=== PATIENT | male | born 1960 | race Caucasian/White ===

== ENCOUNTER 2020-11-20 15:55 | Outpatient (CLI) | payer MEDICARE, MEDICAID, SELFPAY ==
[2020-11-24 19:42] LABS: PSA, Free 0.02 ng/mL; PSA, Total 0.1 ng/mL (<=4.0)
== END 2020-11-20 15:56 | disposition home or self-care (01) ==
LOC: ANHLAB 15:56
PROVIDERS: PCP Internal Medicine; Visit Provider Radiology Radiation Oncology
DX: C61 Malignant neoplasm of prostate (principal)
CPT/HCPCS: 36415; 84153; 84154

== ENCOUNTER 2021-02-26 20:27 | Emergency (ER) | payer MEDICARE, MEDICAID, SELFPAY ==
[2021-02-26 20:30] VITALS: BP 173/90; PULSE 53; RESP 16; TEMP 36.4; O2SAT 100
[2021-02-26 20:34] LABS: Glucose Point of Care 84 (65-105)
--- NOTE | 2021-02-26 20:38 | ECG_ITS ---
Measurements Intervals Fox Rate: 49 P: 55 AR: 176 QRS: 49 QRSD: 106 T: 52 QT: 477 QTc: 434 Interpretive Statements SINUS BRADYCARDIA CANNOT RULE OUT SEPTAL INFARCT, AGE INDETERMINATE BASELINE ARTIFACT- I, II, III, AVR, AVL, AVF, V1, V4-V5 ABNORMAL ECG Electronically Signed On 02-27-2021 7:39:32 CDT by Fabio Zamora D.O.
--- NOTE | 2021-02-26 20:38 | ED.AMS ---
HPI - Altered Mental Status General Chief Complaint: Altered Mental Status Stated Complaint: unresponsive, bs 29 Source: patient and EMS Mode of arrival: EMS Limitations: no limitations History of Present Illness HPI narrative: This is a 60 year old male with history DM, hypertension, hyperlipidemia who presents via EMS for evaluation of unresponsiveness. EMS states patient was unresponsive and he was found to have BS of 29. EMS started D10 iv infusion and he is now awake. Patient states he was at a friend's house when this occurred. He admits to drinking 6 pack of beer today. He has only eaten a banana and V8 today. He states he gave himself 10 units of U-100 insulin this morning, and he has not checked his BS today. He thinks his issue is because he has not eaten much today. He denies chest pain, headache, nausea, vomiting, cough, diarrhea or fever. Related Data Home Medications Medication Instructions Recorded Confirmed carvedilol 12.5 mg tablet 12.5 mg PO Q12H 10/08/19 02/01/21 iinrnswf-dhm-rdrqd acid 0.4 1 tablet PO DAILY 10/08/19 02/01/21 mg-lycopene 300 mcg-lutein 250 mcg tablet furosemide 40 mg tablet 40 mg PO QAM 10/28/19 02/01/21 spironolactone 100 mg tablet 100 mg PO DAILY 10/28/19 02/01/21 hydrocodone 5 mg-acetaminophen 325 1 tablet PO Q6H PRN 06/04/20 02/01/21 mg tablet multivitamin 1 tablet PO DAILY 11/30/20 02/01/21 Allergies Allergy/AdvReac Type Severity Reaction Status Date / Time canagliflozin Allergy Intermediate rash Verified 10/26/20 10:47 Review of Systems Review of Systems: All systems reviewed & are unremarkable except as noted in HPI and below PMFSH Past Medical History Medical History Chronic pancreatitis Diabetes mellitus Esophageal varices Gynecomastia, male History of rectal polyps Hyperlipidemia due to dietary fat intake Lung nodule < 6cm on CT Not visible on PET/CT 06/09/2020 Prostate cancer Surgical History Surgical History History of hernia surgery History of prostatectomy Family History Family History (Updated 06/28/17 @ 09:28 by DOCTOR UNKNOWN) Mother Family history of Alzheimer's disease Father Patient's father is Cerebrovascular accident Family history of kidney disease Sibling Hypertension Other Diabetes mellitus Family history of allergic disorder Social History Social History (Updated 06/04/20 @ 14:09 by Jaqueline Meeks, [facility]) Smoking packs per day: 0.5 Smoking cigarettes per day: 10.0 Years smoked: 20 Smoking pack-years: 10.00 Smoking status: Former smoker Tobacco type: cigarettes Smoking end date: 10/23/99 Additional smoking assessment comments: smoked less than a pack per week Alcohol intake: current Spiritual care concerns: No Exam Const: General: no acute distress and alert Orientation/consciousness: patient oriented x3 HENMT: Head: normocephalic and atraumatic Face and sinus: face symmetric Throat: posterior oropharynx normal, tonsils normal and uvula midline Eyes: Pupils: Equal, round and reactive pupils present EOM: EOMs intact bilaterally Neck: Neck: normal visual inspection Chest: Chest palpation & inspection: normal inspection of the chest Resp: Effort & Inspection: normal respiratory effort and no retractions Auscultation: clear to auscultation bilaterally Cardio: Rate: regular rate Rhythm: regular rhythm Heart sounds: no murmurs GI: GI Palp: Yes Soft to palpation, Yes Tenderness to palpation present (GI) (RUQ) and No Guarding due to palpation present (GI) Auscultation: normal bowel sounds Skin: General skin exam: normal color Rashes: no rashes Neuro: General: patient oriented x3, moves all extremities and CN's II-XI intact bilaterally Psych: Mental Status: mental status grossly normal Affect: normal affect Course Reevaluation(s) Reevaluation #1
[2021-02-26 21:05] LABS: Basophils Percent Auto 0.3 % (0.2-1.2); Eosinophils Absolute Auto 0.1 K/mm3 (0-0.3); Eosinophils Percent Auto 2.2 % (0-4.4); Hematocrit 38.1 % (42.0-52.0); Immature Granulocyte Absolute 0.05 K/mm3 (0.00-0.031); Immature Granulocyte Percent A 0.8 % (0-0.5); Immature Platelet Fraction Pct 9.1 % (0.9-11.2); Lymphocytes Absolute Auto 0.44 K/mm3 (0.9-3.2); Lymphocytes Percent Auto 7.4 % (18.3-44.2); Mean Corpuscular HGB Conc 34.1 g/dl (32-36); Mean Corpuscular Hemoglobin 31.2 pg (26-34); Mean Corpuscular Volume 91.4 fl (80-100); Mean Platelet Volume 10.7 fl (7.4-10.4); Monocytes Absolute Auto 0.5 K/mm3 (0.1-0.6); Monocytes Percent Auto 9.1 % (2.6-8.5); Neutrophils Absolute Auto 4.7 K/mm3 (1.3-6.7); Neutrophils Percent Auto 80.2 % (45.5-73.1); Platelet Count Result 112 k/mm3 (150-375); Red Blood Count 4.17 M/mm3 (4.6-6.20); Red Cell Distribution Width 13.6 % (11.5-14.5); White Blood Count 5.9 K/mm3 (4.5-10.0)
[2021-02-26 21:12] LABS: Potassium 3.9 mmol/L (3.4-5.0)
[2021-02-26 21:23] LABS: Alanine Aminotransferase 52 U/L (4-50); Albumin Level 4.5 g/dL (3.5-5.1); Alkaline Phosphatase 112 U/L (38-126); Anion Gap 9 mmol/L (8-16); Aspartate Amino Transferase 64 U/L (17-59); Bilirubin,Total 1.1 mg/dL (0.2-1.3); Blood Urea Nitrogen 9 mg/dL (9-20); Calcium 9.3 mg/dL (8.4-10.2); Carbon Dioxide 22 mmol/L (22-30); Chloride 96 mmol/L (98-107); Estimated CRCL calculation 87 ml/min; Estimated Glomerular Filt Rate > 60; Glucose 63 mg/dL (75-110); Sodium 127 mmol/L (137-145)
[2021-02-26 21:33] LABS: Glucose Point of Care 117 (65-105)
[2021-02-26 21:44] LABS: Ethanol 69 mg/dL (<10)
[2021-02-26] MEDS: SODIUM CHLORIDE 0.9% IV 1,000 ML 999 ML IV CONT (21:52)
[2021-02-26 21:53] VITALS: BP 98/62; PULSE 60; RESP 18; O2SAT 99
[2021-02-26 21:55] LABS: Glucose Point of Care 119 (65-105)
[2021-02-26 23:01] LABS: Glucose Point of Care 117 (65-105)
[2021-02-26 23:16] LABS: Magnesium 1.6 mg/dL (1.6-2.3)
[2021-02-26 23:42] LABS: Add Urine Microscopic? YES; Appearance Urine Clear (Clear); Bilirubin Urine Negative (Negative); Blood Urine Negative (Negative); Color Urine Yellow (Yellow); Glucose Urine UA 1+ mg/dL (Negative); Ketones Urine Negative (Negative); Leukocyte Esterase Ur Negative LEU/UL (Negative); Nitrate Urine Negative (Negative); Protein Urine Negative (Negative); RBC Urine 0-2 /hpf (0-2); Specific Grav Ur 1.006 (1.001-1.035); Squamous Epithelial Cell Urine Rare /hpf (Few); Urobilinogen Urine Negative mg/dL (<2.0); WBC Urine 0-3 /hpf
[2021-02-26 23:52] VITALS: BP 154/92; PULSE 61; RESP 20; O2SAT 100
[2021-02-27 00:10] VITALS: BP 135/81; PULSE 69; RESP 16; O2SAT 100
== END 2021-02-27 00:23 | disposition home or self-care (01) ==
PROVIDERS: Emergency Provider General Practice; PCP Internal Medicine
DX: E11.649 Type 2 diabetes mellitus with hypoglycemia without coma (principal); E87.1 Hypo-osmolality and hyponatremia; E78.5 Hyperlipidemia, unspecified; I10 Essential (primary) hypertension; K86.1 Other chronic pancreatitis; Z87.19 Personal history of other diseases of the digestive system; Z85.46 Personal history of malignant neoplasm of prostate; Z87.891 Personal history of nicotine dependence; Z79.4 Long term (current) use of insulin; R94.31 Abnormal electrocardiogram [ECG] [EKG]; R00.1 Bradycardia, unspecified; Z79.899 Other long term (current) drug therapy
CPT/HCPCS: 36415; 80053; 80307; 81001; 82948; 83735; 85025; 85055; 93005; 96360; 99284; J7030

== ENCOUNTER 2021-09-22 08:09 | Outpatient (CLI) | payer MEDICARE, MEDICAID, SELFPAY ==
--- NOTE | ~2021-09-22 | NM_ITS ---
EXAMINATION: NM jluis stress w perfusion DATE: 09/22/2021 11:12 [facility] INDICATION: Preprocedural cardiovascular examination. TECHNIQUE: Rest images were obtained following intravenous administration of 9.4 mCi Tc99m tetrofosmi n (Myoview). The patient was infused intravenously with Lexiscan (regadenoson). Then, 29.5 mCi Tc99m tetrofosmin (Myoview) was administered intravenously, and stress images were obtained. Data was recon structed into short axis and horizontal and vertical long axis SPECT images. Gated SPECT images were also obtained. COMPARISON: None. FINDINGS: There is no definite reversible or fixed perfusion abnormality to suggest ischemia or infar ction. There is no segmental wall motion abnormality. Left ventricular ejection fraction measures 7 4%. IMPRESSION: 1. No definite ischemia or infarct. 2. Normal left ventricular ejection fraction measuring 74%. Reviewed, dictated and finalized at location B. [facility]
--- NOTE | 2021-09-22 08:28 | EST_ITS ---
Patient Info Name: Lloyd Mckeon Age: 61 years : 1960 Gender: Male Ht: 72 in Wt: 154 lbs BSA: 1.88 m2 HR: 96 bpm BP: 179 / 88 mmHg Heart Rhythm: Sinus Rhythm Exam Date: 09/22/2021 8:45 AM Exam Location: [facility] Stress Patient Status: Outpatient Admit Date: 09/22/2021 Staff Ordering Physician: Rafael Castaneda DO Attending Provider: Tyler Smith MD Exercise Technologist: Aniya Bowman CT Exercise Physician: Fabio Zamora DO Exam Type: CA stress jluis w NM Study Info A regadenoson stress test was performed. Summary 1. 1. Negative lexiscan stress test for ischemic ST changes by ECG criteria. 2. 2. Baseline hypertension. 3. 3. Nuclear scan to follow and will be reported separately. Please correlate with it. 4. 4. Patient informed of the above results. Protocol: Lexiscan Stress ECG Details Stage: REST Duration (min): 44 min : 35 sec HR (bpm): 97 SBP (mmHg): --- DBP (mmHg): --- Stage: REST Duration (min): 50 min : 14 sec HR (bpm): 85 SBP (mmHg): 185 DBP (mmHg): 120 Stage: STAGE 1 Duration (min): 1 min : 0 sec HR (bpm): 95 SBP (mmHg): 179 DBP (mmHg): 88 Stage: RECOVERY Duration (min): 1 min : 0 sec HR (bpm): 98 SBP (mmHg): 179 DBP (mmHg): 88 Stage: RECOVERY Duration (min): 2 min : 0 sec HR (bpm): 94 SBP (mmHg): 179 DBP (mmHg): 88 Stage: RECOVERY Duration (min): 2 min : 33 sec HR (bpm): 92 SBP (mmHg): 176 DBP (mmHg): 104 Rest HR: 85 bpm Peak HR: 105 bpm Rest Sys BP: 185 mmHg Peak Sys BP: 179 mmHg Max Pred HR: 159 bpm % Max Pred HR: 66 % Target HR: 135 bpm Max RPP: 18,795 bpm*mmHg Termination Reason: Completed protocol Cardiac Symptoms: None Total Time: 1 min : 0 sec Rest Saleem BP: 120 mmHg Peak Saleem BP: 88 mmHg Total Dose: 0.4 mg Resting ECG Sinus rhythm, cannot r/o septal infarct, age indeterminate. Stress ECG No ST changes. Arrhythmias None. Report Signatures
[2021-09-22 09:44] LABS: Basophils Percent Auto 0.5 % (0.2-1.2); Eosinophils Absolute Auto 0.1 K/mm3 (0-0.3); Eosinophils Percent Auto 2.6 % (0-4.4); Hemoglobin 13.3 g/dL (14.0-18.0); Immature Granulocyte Absolute 0.01 K/mm3 (0.00-0.031); Immature Granulocyte Percent A 0.2 % (0-0.5); Immature Platelet Fraction Pct 9.1 % (0.9-11.2); Lymphocytes Absolute Auto 0.29 K/mm3 (0.9-3.2); Lymphocytes Percent Auto 6.9 % (18.3-44.2); Mean Corpuscular HGB Conc 35.9 g/dl (32-36); Mean Corpuscular Hemoglobin 33.4 pg (26-34); Mean Platelet Volume 11.3 fl (7.4-10.4); Monocytes Absolute Auto 0.5 K/mm3 (0.1-0.6); Monocytes Percent Auto 10.6 % (2.6-8.5); Neutrophils Absolute Auto 3.4 K/mm3 (1.3-6.7); Neutrophils Percent Auto 79.2 % (45.5-73.1); Platelet Count Result 90 k/mm3 (150-375); Red Blood Count 3.98 M/mm3 (4.6-6.20); Red Cell Distribution Width 13.7 % (11.5-14.5); White Blood Count 4.2 K/mm3 (4.5-10.0)
[2021-09-22 09:55] LABS: Anion Gap 9 mmol/L (8-16); Blood Urea Nitrogen 13 mg/dL (9-20); Calcium 9.7 mg/dL (8.4-10.2); Carbon Dioxide 27 mmol/L (22-30); Chloride 97 mmol/L (98-107); Estimated Glomerular Filt Rate > 60; Glucose 261 mg/dL (65-110); Potassium 4.3 mmol/L (3.4-5.0); Sodium 133 mmol/L (137-145)
== END 2021-09-22 08:10 | disposition home or self-care (01) ==
PROVIDERS: PCP Internal Medicine
DX: Z01.818 Encounter for other preprocedural examination (principal); Z01.810 Encounter for preprocedural cardiovascular examination; E11.9 Type 2 diabetes mellitus without complications; Z51.81 Encounter for therapeutic drug level monitoring; Z79.899 Other long term (current) drug therapy
CPT/HCPCS: 36415; 78452; 80048; 85025; 85055; 93017; A9502; J2785

== ENCOUNTER 2022-08-08 14:05 | Emergency (ER) | payer MEDICARE, MEDICAID, SELFPAY ==
--- NOTE | ~2022-08-08 | CT_ITS ---
EXAMINATION: CT abdomen pelvis w con DATE: 08/08/2022 18:16 INDICATION: Abdominal pain, ascites TECHNIQUE: Computed tomography (CT) of the abdomen and pelvis was performed with 100 mL Omnipaque-350 intravenous contrast. Automated exposure control and iterative reconstruction technique were employe d. The dose-length product was 521.62 mGy-cm. COMPARISON: 05/27/2019. FINDINGS: Lower thorax: Bibasilar scarring. Coronary artery calcification. Liver: Small left lobe. Cavernous transformation. Portal vein occlusion. Biliary/Gallbladder: Gallbladder is absent. No bile duct dilation. Pancreas: Multiple calcifications as can be seen with chronic pancreatitis. Spleen: Normal. Adrenals:No mass. Kidneys: No mass, stone, or hydronephrosis. GI tract: No small or large bowel dilation. Normal appendix. Mesentery/Peritoneum: Moderate volume ascites. Upper abdominal varices. Retroperitoneum: No mass. Atherosclerotic abdominal aortic and/or arterial calcifications. Pelvis: Pelvic organs are within normal limits. Soft Tissues: Body wall edema. Bones: No acute osseous finding. Uncomplicated posterior lumbar fusion hardware. 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 Moderate ascites. Reviewed, dictated and finalized at location K.
[2022-08-08 14:08] VITALS: BP 118/56; PULSE 88; RESP 18; TEMP 36.2; O2SAT 100
[2022-08-08 14:26] LABS: Basophils Percent Auto 0.3 % (0.2-1.2); Eosinophils Absolute Auto 0.1 K/mm3 (0-0.3); Eosinophils Percent Auto 1.2 % (0-4.4); Hematocrit 26.2 % (42.0-52.0); Hemoglobin 8.7 g/dL (14.0-18.0); Immature Granulocyte Absolute 0.02 K/mm3 (0.00-0.031); Immature Granulocyte Percent A 0.3 % (0-0.5); Lymphocytes Absolute Auto 0.24 K/mm3 (0.9-3.2); Lymphocytes Percent Auto 4.1 % (18.3-44.2); Mean Corpuscular HGB Conc 33.2 g/dl (32-36); Mean Corpuscular Hemoglobin 30.3 pg (26-34); Mean Corpuscular Volume 91.3 fl (80-100); Mean Platelet Volume 10.7 fl (7.4-10.4); Monocytes Absolute Auto 0.6 K/mm3 (0.1-0.6); Monocytes Percent Auto 9.8 % (2.6-8.5); Neutrophils Percent Auto 84.3 % (45.5-73.1); Platelet Count Result 184 k/mm3 (150-375); Red Blood Count 2.87 M/mm3 (4.6-6.20); Red Cell Distribution Width 14.5 % (11.5-14.5); White Blood Count 5.9 K/mm3 (4.5-10.0)
[2022-08-08 14:36] LABS: Alanine Aminotransferase 35 U/L (6-50); Albumin Level 2.7 g/dL (3.5-5.1); Alkaline Phosphatase 152 U/L (38-126); Ammonia < 9 umol/L (9-30); Anion Gap 8 mmol/L (8-16); Aspartate Amino Transferase 34 U/L (17-59); Bilirubin,Total 0.6 mg/dL (0.2-1.3); Blood Urea Nitrogen 9 mg/dL (9-20); Calcium 7.9 mg/dL (8.4-10.2); Carbon Dioxide 26 mmol/L (22-30); Chloride 95 mmol/L (98-107); Estimated CRCL calculation 71 ml/min; Estimated Glomerular Filt Rate > 60; Glucose 299 mg/dL (65-110); Lipase 34 U/L (23-300); Potassium 4.2 mmol/L (3.4-5.0); Sodium 129 mmol/L (137-145)
--- NOTE | 2022-08-08 16:11 | ED.ABDPAIN ---
HPI - Abdominal Pain General Chief Complaint: Abdominal Pain Stated Complaint: asites Time Seen by Provider: 08/08/22 16:10 Source: patient and RN notes reviewed Mode of arrival: ambulatory Limitations: no limitations History of Present Illness HPI narrative: Patient is 62 years old white male came to the emergency room by private car from home complaining of ascites started 3 days ago. Patient was discharged from [facility] 4 days ago after 1 week hospitalization for GI bleed and ascites. Patient was referred to brand sales manager at [facility] and is scheduled to see him in 2 days. Patient unable to wait until appointment. Patient report that his abdominal pain is out of 10 and would like pain medication. He denies any fever, chills, nausea, vomiting, diarrhea, constipation, vomiting blood or passing blood per rectum Related Data Home Medications Medication Instructions Recorded Confirmed gnekdbmfmqtj-ywajldqj-ryrgkh tablet 1 tablet PO DAILY 04/01/22 07/11/22 atorvastatin 20 mg tablet mg 08/08/22 carvedilol 12.5 mg tablet mg 08/08/22 esomeprazole magnesium 20 mg mg 08/08/22 capsule,delayed release furosemide 40 mg tablet mg 08/08/22 gabapentin 600 mg tablet mg 08/08/22 insulin aspart U-100 100 unit/mL 08/08/22 subcutaneous solution (Novolog U-100 Insulin aspart) insulin degludec 100 unit/mL (3 unit subcut 08/08/22 mL) subcutaneous pen (Tresiba FlexTouch U-100 insulin) insulin regular human (Afrezza) unit inhalation 08/08/22 spironolactone 100 mg tablet mg 08/08/22 Allergies Allergy/AdvReac Type Severity Reaction Status Date / Time canagliflozin Allergy Intermediate rash Verified 08/08/22 19:20 morphine Allergy Itching Verified 08/08/22 19:20 Review of Systems Review of Systems: All systems reviewed & are unremarkable except as noted in HPI and below PMFSH Past Medical History Medical History Chronic pancreatitis Diabetes mellitus Diabetes mellitus DVT prophylaxis Encounter for wound care Esophageal varices Gynecomastia, male History of rectal polyps HTN (hypertension) Hyperlipidemia Hyperlipidemia due to dietary fat intake Lung nodule < 6cm on CT Not visible on PET/CT 06/09/2020 Malnutrition related to chronic disease Pancytopenia Prostate cancer Urinary retention Surgical History Surgical History History of hernia surgery History of prostatectomy Previous back surgery 03/23/2022 Family History Family History Mother Family history of Alzheimer's disease Father Patient's father is Cerebrovascular accident Family history of kidney disease Sibling Hypertension Other Diabetes mellitus Family history of allergic disorder Social History Social History Smoking packs per day: 0.5 Smoking cigarettes per day: 10.0 Years smoked: 20 Smoking pack-years: 10.00 Smoking status: Former smoker Smoking end date: 03/23/17 Additional smoking assessment comments: smoked less than a pack per week Alcohol intake: current Alcohol use details: rarely Substance use: current Substance use type: marijuana Other substance usage details: [facility] Spiritual care concerns: No Exam Narrative: General appearance: Well-developed, well-nourished Skin: Normal color, 3+ leg edema bilaterally, scrotal edema Head: Normocephalic, nontraumatic Eyes: Clear conjunctiva ENT: Oropharynx normal, ears normal, nose normal Neck: Supple, nontender Chest and respiratory: Airway patent, no respiratory distress, no accessory muscle use Heart: Regular rate/rhythm Abdomen: Soft, nontender, moderate ascites, flat umbilicus, no caput medusa, no organomegaly, quiet bowel sounds Vascular: Normal peripheral pulses, normal capillary refill. Musculoskeletal: No
[2022-08-08 17:29] LABS: Add Urine Microscopic? YES; Appearance Urine Clear (Clear); Bilirubin Urine Negative (Negative); Blood Urine 1+ (Negative); Color Urine Yellow (Yellow); Glucose Urine UA 3+ mg/dL (Negative); Hyaline Casts Urine 30-49 /lpf; Ketones Urine Negative (Negative); Leukocyte Esterase Ur Negative LEU/UL (Negative); Mucus Urine Rare /lpf; Nitrate Urine Negative (Negative); Protein Urine Negative (Negative); Specific Grav Ur 1.006 (1.001-1.035); Urobilinogen Urine Negative mg/dL (<2.0); WBC Urine 0-3 /hpf
[2022-08-08 20:04] VITALS: BP 155/77; PULSE 82; RESP 19; O2SAT 98
== END 2022-08-08 20:07 | disposition home or self-care (01) ==
PROVIDERS: Emergency Provider Emergency Medicine; PCP Internal Medicine
DX: R18.8 Other ascites (principal); K76.6 Portal hypertension; R10.9 Unspecified abdominal pain; E11.9 Type 2 diabetes mellitus without complications; E78.5 Hyperlipidemia, unspecified; I10 Essential (primary) hypertension; K86.1 Other chronic pancreatitis; Z87.19 Personal history of other diseases of the digestive system; Z85.46 Personal history of malignant neoplasm of prostate; Z90.79 Acquired absence of other genital organ(s); Z87.891 Personal history of nicotine dependence; Z79.4 Long term (current) use of insulin; I81 Portal vein thrombosis
CPT/HCPCS: 36415; 74177; 80053; 81001; 82140; 82248; 83690; 85025; 99284; Q9967